=== PATIENT | female | born 1995 | race Caucasian/White ===

== ENCOUNTER 2021-07-11 12:53 | Outpatient (REF) | payer OTHER, SELFPAY | END 2021-07-11 12:54 | disposition home or self-care (01) | LOC: HO.LNP 12:53 | PROVIDERS: Visit Provider Hospitalist | DX: Z20.822 Contact with and (suspected) exposure to COVID-19 (principal); J01.90 Acute sinusitis, unspecified | CPT/HCPCS: U0003; U0005 ==

== ENCOUNTER 2022-05-29 13:35 | Outpatient (REF) | payer OTHER, SELFPAY ==
[2022-05-29 16:35] LABS: MANUAL DIFF FLAG NO
[2022-05-29 16:38] LABS: Appearance Urine CLEAR; Color Urine YELLOW; Glucose Urine UA NEG (NEG); Leukocyte Esterase Urine NEG (NEG); Nitrite Urine NEG (NEG); Specific Gravity - Urine 1.015 (1.005-1.025); UACC Culture Trigger NO; Urine Blood TRACE (NEG); Urine Ketones NEG (NEG); Urine Protein NEG (NEG-TRACE)
[2022-05-29 16:43] LABS: Basophils Percent Auto 0.5 % (0-2); Eosinophils Absolute Auto 0.1 X10*3/uL (0.0-0.4); Eosinophils Percent Auto 0.7 % (0-4); Hematocrit 36.9 % (37.0-47.0); Hemoglobin 12.3 g/dl (12.0-16.0); Imm Gran Abs Auto 0.01 X10*3/uL (0.00-0.03); Imm Gran Pct Auto 0.1 % (0.0-0.4); Lymphocytes Absolute Auto 2.2 X10*3/uL (1.2-4.9); Lymphocytes Percent Auto 25.1 % (20-40); Mean Corpuscular HGB Conc 33.3 g/dl (31.0-35.0); Mean Corpuscular Hemoglobin 30.4 pg (27.0-33.0); Mean Corpuscular Volume 91.3 fL (80.0-98.0); Mean Platelet Volume 9.6 fL (9.4-12.3); Monocytes Absolute Auto 0.7 X10*3/uL (0.1-1.2); Neutrophils Absolute Auto 5.6 x10*3/uL (2.0-8.3); Neutrophils Percent Auto 65.6 % (45-73); Platelet Count 321 X10*3/uL (160-400); Red Blood Count 4.04 X10*6/uL (4.20-5.50); Red Cell Distribution Width 11.9 % (11.0-16.0); White Blood Count 8.6 X10*3/uL (4.8-10.8)
[2022-05-29 16:48] LABS: Bacteria Urine TRACE /LPF; Squamous Epithelial Cell Urine TRACE /LPF; WBC Urine 0-2 /HPF (0-4)
[2022-05-29 16:51] LABS: Alanine Aminotransferase 16 U/L (0-31); Albumin Level 4.3 g/dL (3.5-5.0); Alkaline Phosphatase 34 U/L (39-117); Anion Gap 11 (12-20); Aspartate Amino Transferase 17 U/L (5-31); Bilirubin Total 0.4 mg/dL (0.0-1.0); Blood Urea Nitrogen 13 mg/dL (9-16); Calcium 9.2 mg/dL (8.4-10.2); Carbon Dioxide 22 mmol/L (22-29); Chloride 105 mmol/L (96-108); Cholesterol 166 mg/dL; Estimated Glomerular Filt Rate > 60; Glucose Fasting 95 mg/dL (60-99); HDL Cholesterol 60 mg/dL; LDL Cholesterol Calculated 92 mg/dl; Potassium 3.8 mmol/L (3.3-5.1); Sodium 134 mmol/L (135-145); Triglycerides 71 mg/dL
[2022-05-29 17:12] LABS: TSH reflex Free T4 0.66 uIU/mL (0.32-4.0)
== END 2022-05-29 13:36 | disposition home or self-care (01) ==
LOC: HO.HMGCLDS 13:35
PROVIDERS: PCP Nurse Practitioner Family; Visit Provider Nurse Practitioner Family
DX: Z00.00 Encounter for general adult medical examination without abnormal findings (principal)
CPT/HCPCS: 36415; 80053; 80061; 81001; 84443; 85025

== ENCOUNTER 2022-09-13 15:16 | Outpatient (REF) | payer OTHER, SELFPAY ==
[2022-09-14 06:12] LABS: CT PCR NOT DETECTED (Not Detect.); NG PCR NOT DETECTED (Not Detect.)
[2022-09-14 12:16] LABS: BV Int Neg Control Negative (Negative); BV Int Pos Control Positive (Positive)
[2022-09-20 19:57] LABS: HPV 16 RNA NOT DETECTED (NOT DETECTED); HPV mRNA E6/E7 rflx Detected (Not Detected)
== END 2022-09-13 15:17 | disposition home or self-care (01) ==
LOC: HO.LNP 15:16
PROVIDERS: Visit Provider Advanced Practice Midwife
DX: Z01.419 Encounter for gynecological examination (general) (routine) without abnormal findings (principal); Z11.51 Encounter for screening for human papillomavirus (HPV)
CPT/HCPCS: 87480; 87491; 87510; 87591; 87624; 87625; 87660; 88142

== ENCOUNTER 2022-09-22 14:34 | Outpatient (REF) | payer OTHER, MEDICAID, SELFPAY ==
--- NOTE | ~2022-09-22 | US_ITS ---
EXAMINATION: US DIAGNOSTIC ULTRASOUND BREAST, RIGHT US DIAGNOSTIC ULTRASOUND BREAST, LEFT CLINICAL INFORMATION: 26-year-old with tender and palpable fullness noted by patient bilateral breast upper outer quadrants. No discharge. Family history breast cancer maternal grandmother. No prior breast imaging. COMPARISON: None. No prior breast imaging. TECHNIQUE: Ultrasound of both breasts is targeted to the areas of clinical concern upper outer quadrant using grayscale imaging and color Doppler without and with harmonics. Patient is able to point areas of concern at time of imaging. FINDINGS: Right: There is no focal suspicious finding. There is no cystic or solid mass, architectural abnormality, duct ectasia, or edema in the soft tissue planes. No skin thickening. Left: There is a benign-appearing circumscribed macrolobulated solid mass 2:00 position 11 cm from nipple measuring 1.5 x 0.6 x 1.3 cm. There is no other cystic or solid mass or architectural abnormality. No focal duct ectasia. No skin thickening or edema tracking in soft tissue planes. Results are discussed with the patient at time of visit. The left breast mass most likely represents a fibroadenoma. Management options discussed. Patient is comfortable with serial follow-up ultrasound. US/US breast RT limited IMPRESSION: Right: -Unremarkable ultrasound. No cystic or solid mass or inflammatory changes. Left: -Benign-appearing macrolobulated solid mass 2:00 position 11 cm from nipple measuring 1.5 cm, likely fibroadenoma. ASSESSMENT: BI-RADS 3: Probably Benign RECOMMENDATION: -Left breast ultrasound in 6 months follow-up probable small fibroadenoma. -Patient's bilateral breast tenderness may be managed based on the clinical impression as needed. This patient's information was entered into a reminder system with a target due date for her next breast imaging.
--- NOTE | ~2022-09-22 | US_ITS ---
EXAMINATION: US DIAGNOSTIC ULTRASOUND BREAST, RIGHT US DIAGNOSTIC ULTRASOUND BREAST, LEFT CLINICAL INFORMATION: 26-year-old with tender and palpable fullness noted by patient bilateral breast upper outer quadrants. No discharge. Family history breast cancer maternal grandmother. No prior breast imaging. COMPARISON: None. No prior breast imaging. TECHNIQUE: Ultrasound of both breasts is targeted to the areas of clinical concern upper outer quadrant using grayscale imaging and color Doppler without and with harmonics. Patient is able to point areas of concern at time of imaging. FINDINGS: Right: There is no focal suspicious finding. There is no cystic or solid mass, architectural abnormality, duct ectasia, or edema in the soft tissue planes. No skin thickening. Left: There is a benign-appearing circumscribed macrolobulated solid mass 2:00 position 11 cm from nipple measuring 1.5 x 0.6 x 1.3 cm. There is no other cystic or solid mass or architectural abnormality. No focal duct ectasia. No skin thickening or edema tracking in soft tissue planes. Results are discussed with the patient at time of visit. The left breast mass most likely represents a fibroadenoma. Management options discussed. Patient is comfortable with serial follow-up ultrasound. US/US breast LT limited IMPRESSION: Right: -Unremarkable ultrasound. No cystic or solid mass or inflammatory changes. Left: -Benign-appearing macrolobulated solid mass 2:00 position 11 cm from nipple measuring 1.5 cm, likely fibroadenoma. ASSESSMENT: BI-RADS 3: Probably Benign RECOMMENDATION: -Left breast ultrasound in 6 months follow-up probable small fibroadenoma. -Patient's bilateral breast tenderness may be managed based on the clinical impression as needed. This patient's information was entered into a reminder system with a target due date for her next breast imaging.
== END 2022-09-22 14:35 | disposition home or self-care (01) ==
LOC: HO.MAMMO 14:34
PROVIDERS: PCP Nurse Practitioner Family; Visit Provider Nurse Practitioner Family
DX: N63.15 Unspecified lump in the right breast, overlapping quadrants (principal); N63.21 Unspecified lump in the left breast, upper outer quadrant
CPT/HCPCS: 76642

== ENCOUNTER 2023-03-23 14:02 | Outpatient (REF) | payer OTHER, SELFPAY ==
--- NOTE | ~2023-03-23 | US_ITS ---
EXAMINATION: US BREAST DIAGNOSTIC, LEFT CLINICAL INFORMATION: Six-month follow-up left breast mass. COMPARISON: 09/22/2022. TECHNIQUE: Ultrasound of the breast is performed with real-time vale scale imaging and color Doppler. FINDINGS: There is again noted to be a circumscribed hypoechoic lesion approximately 2 o'clock position 11 cm from the nipple. Lesion is wider than it is tall. No internal vascularity is seen. There is some mild increased through sound transmission without distal sound shadowing. It measures approximately 1.4 x 0.6 x 1.4 cm in size without significant change since study of 09/22/2022. Recommend 6 month follow-up left breast ultrasound. Results are discussed with the patient at time of visit. US/US breast LT limited IMPRESSION: Stable left breast lesion with benign appearance and either probably representing a fibroadenoma or complex cyst. ASSESSMENT: BI-RADS 3: Probably Benign RECOMMENDATION: Left breast ultrasound in 6 months. This patient's information was entered into a reminder system with a target due date for their next mammogram.
== END 2023-03-23 14:03 | disposition home or self-care (01) ==
LOC: HO.MAMMO 14:02
PROVIDERS: PCP Nurse Practitioner Family; Visit Provider Advanced Practice Midwife
DX: N63.21 Unspecified lump in the left breast, upper outer quadrant (principal)
CPT/HCPCS: 76642

== ENCOUNTER 2023-09-25 15:37 | Outpatient (REF) | payer OTHER, SELFPAY ==
--- NOTE | ~2023-09-25 | US_ITS ---
EXAMINATION: US DIAGNOSTIC ULTRASOUND BREAST, left. CLINICAL INFORMATION: 6 month Follow-up probably benign mass, likely fibroadenoma or variant. This has been followed since 09/22/2022. COMPARISON: 03/23/2023, 09/22/2022. TECHNIQUE: Ultrasound of the left breast is performed with real-time vale scale imaging and color Doppler. Attention was given to the 2:00 axis in the region of the known hypoechoic mass. FINDINGS: Within the left breast, 2:00 axis, 8 cm from the nipple, there is a stable and unchanged lobular hypoechoic mass measuring 1.3 x 0.5 x 1.3 cm (previously 1.4 x 0.6 x 1.4 cm). This has through transmission, is avascular, and demonstrates lobular contour. This is most likely a fibroadenoma or variant. US/US breast LT limited mamm only IMPRESSION: Stable fibroadenoma or variant in the left breast 2:00 axis, 8 cm from the nipple. Today's examination documents one-year stability. Recommend 1 year additional follow-up to document two-year stability. ASSESSMENT: BI-RADS 3: Probably Benign RECOMMENDATION: Diagnostic targeted left breast sonography in 12 months. This patient's information was entered into a reminder system with a target due date for their next mammogram.
== END 2023-09-25 15:38 | disposition home or self-care (01) ==
LOC: HO.MAMMO 15:37
PROVIDERS: PCP Nurse Practitioner Family; Visit Provider Nurse Practitioner Family
DX: N63.21 Unspecified lump in the left breast, upper outer quadrant (principal)
CPT/HCPCS: 76642

== ENCOUNTER → 2023-09-25 15:41 | Outpatient (BNV) | payer OTHER, SELFPAY | PROVIDERS: PCP Nurse Practitioner Family; Visit Provider Radiology Diagnostic Radiology | DX: N63.21 Unspecified lump in the left breast, upper outer quadrant (principal) | CPT/HCPCS: 76642 ==

== ENCOUNTER 2024-09-29 15:27 | Outpatient (REF) | payer OTHER, SELFPAY ==
--- NOTE | ~2024-09-29 | US_ITS ---
EXAMINATION: US DIAGNOSTIC ULTRASOUND BREAST, LEFT CLINICAL INFORMATION: Six-month follow-up for probably benign mass, likely fibroadenoma or variant. This is been followed since 09/22/2022 and if unchanged, will establish a 2 year stability. COMPARISON: 09/25/2023, 03/23/2023, 09/22/2022. TECHNIQUE: Ultrasound of the left breast is performed with real-time vale scale imaging and color Doppler. Attention was given to the upper outer quadrant in the region of known 2:00 axis oval circumscribed mass. FINDINGS: Within the left breast, 2:00 axis, a CM from the nipple, there is a stable and unchanged oval hypoechoic mass measuring 1.3 x 0.5 x 1.3 cm (stable), with good through transmission, no color Doppler flow, and is wider than tall. It has remained unchanged over 2 years and is benign. No further follow-up recommended. US/US breast LT limited mamm only IMPRESSION: -No findings suspicious for malignancy left breast. -Benign oval mass 2:00 axis, stable over 2 years, measuring 1.3 cm. No further follow-up recommended. -Recommend the patient begin screening mammography at age 40. ASSESSMENT: BI-RADS 2: Benign RECOMMENDATION: Routine annual mammography screening beginning at age 40. This patient's information was entered into a reminder system with a target due date for their next mammogram. Electronically signed by: Jett Kraft MD 09/29/2024 04:28 PM [facility]
== END 2024-09-29 15:28 | disposition home or self-care (01) ==
LOC: HO.MAMMO 15:27
PROVIDERS: PCP Nurse Practitioner Family; Visit Provider Nurse Practitioner Family
DX: R92.2 Inconclusive mammogram (principal)
CPT/HCPCS: 76642

== ENCOUNTER → 2024-09-29 15:30 | Outpatient (BNV) | payer OTHER, SELFPAY | PROVIDERS: PCP Nurse Practitioner Family; Visit Provider Radiology Diagnostic Radiology | DX: D24.2 Benign neoplasm of left breast (principal) | CPT/HCPCS: 76642 ==

== ENCOUNTER 2025-01-05 14:57 | Outpatient (AMB) | payer OTHER, SELFPAY ==
--- OUTSIDE RECORDS SUMMARY | 2025-01-05 15:00 | XMS_ITS | Data Portability ---
Author Organization [facility]ason [id number] Address [address] [place] [address] Assessment No assessment recorded. Plan of Treatment Reminders Order Date Submit Date Provider Last Modified By Organization Details Last Modified Time Details Appointments None record ed. Lab None record ed. Referral None record ed. Procedures None record ed. Surgeries None record ed. Imaging None record ed. Medication Orders None record ed. Patient TargetsNo targets recorded. Patient InstructionsNo instructions recorded. Reason for Referral None Reported. Medical Equipment None Reported. Allergies No known drug allergies Medications Not known to be on any medication Vitals Date Recorded Body temperature Oxygen saturation Oxygen saturation in Arterial blood by Pulse oximetry Heart rate Respiratory rate Body height Body mass index (BMI) Body weight Systolic blood pressure Diastolic blood pressure Provider Name and Address Organization Details Last Updated DateTime 4 97.7 [degF] 98 % 98 % 83 /min 20 /min 162.56 cm 23.2 kg/m2 33662.9 7 g 118 mm[Hg] 72 mm[Hg] Christina Jimenez [facility] 17:03:20 Social History Question Answer Notes LastModified by Organizat ion Details LastModified Time Tobacco Smoking Status Never Smoker [facility] 03/17/2024 17:04:56 What Is Your Level Of Alcohol Consumption? Occasional Information not available 03/17/2024 How Many Times Per Week Do You Consume Alcohol? Less Than 1 Time Per Week Information not available 03/17/2024 Are You Currently Employed? Yes Information not available 03/17/2024 Have You Had A Flu Shot This Season? Yes Information not available 03/17/2024 Have You Had Direct Contact, Or Contact During Intimacy, With Monkeypox Rash, Scabs, Or Body Fluids From A Person With Monkeypox? No Information not available 03/17/2024 What Was The Date Of Your Most Recent Tobacco Screening? 03/17/2024 Information not available 03/17/2024 What Is Your Relationship Status? Single Information not available 03/17/2024 Do You Use Any Illicit Or Recreational Drugs? No Information not available 03/17/2024 Have You Recently Traveled Abroad? No Information not available 03/17/2024 Are You Currently In School? No Information not available 03/17/2024 Do You Or Have You Ever Used Any Other Forms Of Tobacco Or Nicotine? No Information not available 03/17/2024 Sex: Unknown Functional Status None recorded. Mental Status None recorded. Family History Relationship Description Onset Age of this Age Resolved Age Notes LastModified by Organization Details LastModified Time Father No current problems or disability Not available 03/17 17:04:24 Mother No current problems or disability Not available 03/17 17:04:24 Medical History No medical history recorded. Gynecological History Statement/Question Response Is there any chance of ? Unsure Obstetrics History GPAL:G 0 P 0 0 0 0 Past Encounters Encounter ID Performer Location Encounter Start Date Encounter Closed Date Diagnosis/Indication Diagnosis SNOMED-CT Code Diagnosis ICD10 Code Diagnosis Note [id number] [address] [facility] [place] [id number] 12/29/2021 08:08:55 12/29/2021 09:11:13 [id number] [facility] Nelson [address] [place] [address] 03/17/2024 16:41:07 03/17/2024 17:17:30 History and physical examination, [facility] 10802792 Z02.0 Healthy, well developed patient with no contraindi cations for full participat ion.See scanned paperwork for details Health Concerns Section Related Observation LastModified by Organization Detai ls LastModified Time None Recorded Concern Status LastModified by Organization Details LastModified Time None Recorded Advance Directives Directive None Recorded Payers Encounter Date Sequence Insurance Name Policy Number Policy Hernandez Covered Member ID Hernandez Member ID Guarantor Name 12/29/2021 1 MEDICAID-[place]: [facility] Adrienne Buckner [id number] Adrienne Buckner 03/17/2024 OC-PAY AT TIME OF SERVICE 2022 Adrienne Buckner OTHER Adrienne Buckner OBGyn Episode No OBEpisode recorded.
--- OUTSIDE RECORDS SUMMARY | 2025-01-05 15:00 | XMS_ITS | Clinical Summary ---
Author Organization [facility] Address [phone] [facility] [place] [address] Care Team Providers Care Printing Roller Handler Name Role Phone Hemant Weller NP Primary Care Provider + Allergies No known active allergies Medications No known medications Active Problems Problem Noted Date Diagnosed Date Allergic contact dermatitis due to plant 024 Social History Tobacco Use Types Packs/Day Years Used Date Smoking Tobacco: Never Smokeless Tobacco: Never Tobacco Cessation:Counseling Given: Not Answered Education Answer Date Recorded Are you interested in more education? Not on dana e 06/03/2024 Are you concerned about learning? Not on file 06/03/2024 No 06/03/2024 No 06/03/2024 Digital Access Answer Date Recorded No 06/03/2024 No 06/03/2024 Reliable internet access at home? Not on file 06/03/2024 Device with a working camera? Not on file Sex and Gender Information Value Date Recorded Sex Assigned at Not on file Gender Identity Not on file Sexual Orientation Not on file Last Filed Vital Signs Vital Sign Reading Time Taken Comments Blood Pressure 122/70 06/02/2024 5:01 PM EDT Pulse 82 06/02/2024 5:01 PM EDT Temperature 36.8 ??C (98.2 ??F) 06/02/2024 5:01 PM ED T Respiratory Rate 16 06/02/2024 5:01 PM EDT Oxygen Saturation 99% 06/02/2024 5:01 PM EDT Inhaled Oxygen Concentration - - Weight - - Height - - Body Mass Index - - Plan of Treatment Health Maintenance Due Date Last Done Comments Adult Td,Tdap Booster 1993 DEPRESSION SCREENING 2005 HEPATITIS B SCREENING 2011 HEPATITIS C SCREENING 2011 HIV ONE-TIME SCREENING (18-6 5 YEARS) 2011 HEPATITIS B VACCINES (1 of 3 - 19+ 3-dose series) 2012 PAP SMEAR 2014 INFLUENZA VACCINE (#1) 2024 COVID-19 VACCINE ( - 2023-2 5 season) 2024 SMOKING STATUS SCREENING (On ce After 26 Yrs) Completed 06/02/2024 HEPATITIS A VACCINES Aged Out No long er eligible based on patient's age to complete this topic HIB VACCINES Aged Out No longer eligi ble based on patient's age to complete this topic MENINGOCOCCAL VACCINES (ACWY) Aged Out No longer eligible based on patient's age to complete this topic PNEUMOCOCCAL VACCINES (0-49 years) Aged Out No longer eligible based on patient's age to complete this topic Medical Devices Not on file Care Teams Printing Roller Handler Relationship Specialty Start Date End Date Hemant Weller NP [address] [place] [address] PCP - General Nurse Practitioner 06/02/24 Additional Source Comments The information contained in this document represents components of the legal health record. It is not the complete legal health record.[facility]
[2025-01-05 15:01] VITALS: BP 132/78; PULSE 73; TEMP 36.6; O2SAT 98; BMI 24.0
--- NOTE | 2025-01-05 15:01 | A.OFFPC_ITS ---
Vital Signs 01/05/25 15:01 Height 5 ft 4 in Weight 140 lb BMI 24.0 BP 132/78 Blood Pressure Location Lt brachial Position Sitting Pulse 73 Pulse Source Pulse Oximeter Temp 97.8 F Temp Source Oral Pulse Oximetry (%) 98 Oxygen Delivery Method Room Air Intake Visit Reasons: PE Accompanied by: Self / Same As Patient Allergies No Known Allergies Allergy (Verified 01/05/25 15:57) Medication List - Last Reconciled 01/05/25 by VALE Sargent- acyclovir 400 mg PO TID 7 days Tobacco use date assessed: 01/05/25 Dental Screening Dental Screen Date: 01/05/25 Did you have a dental visit in the last 12 months?: Yes Did you have a dental problem in the last 6 months where you did not have access to dental care?: No Was dental information given to patient?: Patient has dentist HPI PE HPI Details History of Present Illness The patient is a 29-year-old female presenting with episodes of blood in her stool noted after bowel movements. This gastrointestinal symptom has not been accompanied by shortness of breath, chest pain, abdominal pain, constipation, or diarrhea. The patient has been advised to increase her dietary fiber intake but is uncertain about the consistency of these lifestyle changes. She reports observing some soreness following defecation but denies any pain during a BM. Notably, there is a differential concern regarding the presence of anal fissures or hemorrhoids. She has requested an evaluation by a female healthcare provider. Health Maintenance - Increase dietary fiber as advised Social History Review of Systems - Gastrointestinal: Reports blood in sto ol and soreness after defecation - Psychiatric: Denies depression, anxiet y, and suicidal ideation -denies any SOB, CP, N/V, depression, SI or HI Physical Exam General: Cooperative, healthy appearing, comfortable, no acute distress and well developed Orientation: Patient oriented x3 Limitations: No limitations Head: Normal to inspection Ears: Hearing grossly normal bilaterally Nose: Normal external nose present Face and sinus: Normal facial exam Eyes: Appearance normal, both eyes and all related structures Neck: Normal visual inspection and Yes full ROM Respiratory: Normal respiratory effort and able to speak in complete sentences. Clear to auscultation bilaterally Cardiovascular: Regular rate and rhythm. Normal S1 and S2 GI: Normal to inspection. Soft to palpation and nontender. Skin: No rashes or lesions noted Neuro: Patient oriented x3 Extremities: Normal to inspection Results Plan - Refer to Gastroenterology for further evaluation of blood in stool and potential hemorrhoid or anal fissure diagnosis, ensure request for female provider is noted - Advise patient to continue dietary fib er increase Discussion Notes I explained the potential diagnoses to the patient, including hemorrhoids and anal fissures, and discussed the importance of a thorough gastrointestinal evaluation by a specialist. The referral to Gastroenterology has been initiated, with a specific request for a female provider, as per the patient's preference. We discussed that increasing fiber intake may alleviate symptoms, and I encouraged her to maintain this dietary change. The patient denies depression and anxiety, and I reassured her about the steps we are taking to manage her symptoms effectively. Patient Instructions - Follow up with a Health Commissioner as referred, requesting a female provider - Maintain increased dietary fiber intak e - Monitor for changes or worsening of sy mptoms and seek medical attention as needed PFSH Medical History COVID-19 Surgical History Hx of elbow surgery Family History Mother Ovarian cancer Social History Housing: Apartment Patient Tobacco Use Status: Never used Tobacco e-Cigarette/Vaping Use: Never Used Second Hand Smoke Exposure: No service: No Current occupational status: employed Current occupation: [employer] Current occupational exposures/hazards: No Cognitive needs: No Hearing needs: No Vision needs: No Female Reproductive History Menstrual Age of Menarche: 14 Questionnaire PHQ-9 Over the last 2 weeks, how often have you been bothered by any of the following problems? 1. Little interest or pleasure in doing things: not at all 2. Feeling down, depressed, or hopeless: not at all 3. Trouble falling or staying asleep, or sleeping too much: not at all 4. Feeling tired or having little energy: not at all 5. Poor appetite or overeating: not at all 6. Feeling bad about yourself - or that you are a failure or have let yourself or your family down: not at all 7. Trouble concentrating on things, such as reading the newspaper or watching television: not at all 8. Moving or speaking so slowly that other people could have noticed. Or the opposite - being so fidgety or restless that you have been moving around a lot more than usual: not at all 9. Thoughts that you would be better off or of hurting yourself in some way: not at all Total score: 0 Depression Screening Interpretation: Negative Depression Screening Done: Yes 36676 - PHQ-9 Billing: Yes Source: Developed by Drs. Brandyn Dutta, Christine Alonso, Wayne Hernández and colleagues, with an educational jeni from [employer]. Thrive Questionnaire Date Thrive assessed: 01/05/25 I am a: Patient What is your living situation today?: I have a steady place to live Within the past 12 months, did the food you bought not last and you didn't have the money to get more?: Never true Within the past 12 months, did you worry whether your food would run out before you got money to buy more?: Never true Do you have trouble paying for medicines?: No Do you have trouble getting transportation to medical appointments?: No Do you have trouble paying your heating and electricity bill?: I choose not to answer this question Do you have trouble taking care of your child, family member or friend?: No Do you have trouble with day-to-day activities such as bathing, preparing meals, shopping, managing finances, etc.?: No Are you currently unemployed and looking for a job?: No Are you interested in more education?: No Please select the resources that you would like help with: Education Currently or been in a relationship where the following occur: No concerns reported THRIVE Score: 0 AUDIT C Alcohol Use Questionnaire (AUDIT-C) 1. How often do you have a drink containing alcohol?: Monthly or less 2. How many drinks containing alcohol do you have on a typical day when you are drinking?: 1 or 2 3. How often do you have six or more drinks on one occasion?: Never Total Score: 1 Score Reviewed/Action Taken: Yes LION-7 AMB Questionnaire LION-7 Date LION - 7 assessed: 01/05/25 Feeling nervous, anxious, or on edge: 0 = Not at all Not being able to stop or control worryin = Not at all Worrying too much about different things: 0 = Not at all Trouble relaxin = Not at all Being so restless that it is hard to sit still: 0 = Not at all Becoming easily annoyed or irritable: 0 = Not at all Feeling afraid as if something awful might happen: 0 = Not at all Total LION-7 score (0-4 normal; 5-9 mild; 10-14 moderate; 15-21 severe): 0 Source: Developed by Drs. Brandyn Dutta, Christine Alonso, Wayne Hernández and colleagues, with an educational jeni from [employer]. LION-7 Assessment Billing LION-7 Assessment Tool: LION-7 Assessment 81451 Physical exam (Primary Care) Vital Signs: Last Vital Signs Temp 97.8 F 01/05/25 15:01 Pulse 73 01/05/25 15:01 BP 132/78 01/05/25 15:01 Pulse Ox 98 01/05/25 15:01 Oxygen Delivery Method Room Air 01/05/25 15:01 BMI result Body Mass Index 24.0 Tobacco/Smoking Status: Tobacco use Status Tobacco use date assessed 01/05/25 01/05/25 15:02 Patient Tobacco Use Status Never used Tobacco 01/05/25 15:02 e-Cigarette/Vaping Use Never Used 01/05/25 15:02 PHQ-9: PHQ-9 Score PHQ-9: Total score 0 01/05/25 15:08 Depression Screening Interpretation: Negative Thrive Assessment: Date of Thrive Assessment Date Thrive assessed 01/05/25 01/05/25 15:02 Currently or been in a relationship where the following occur: No concerns reported Coding Level of Care Code Est Pt Prev Care 18-39y(35822) Diagnoses Physical exam Z00.00 Blood in stool K92.1 Additional Codes LION-7 Assessment Billing - LION-7 Assessment Tool: LION-7 Assessment 27116 ([id number]) PHQ-9 - 14925 - PHQ-9 Billing: Yes ([id number]) Assessment & Plan Assessment & Plan (1) Physical exam: Code(s): Z00.00 - Encounter for general adult medical examination without abnormal findings Category: Medical (2) Blood in stool: Code(s): K92.1 - Melena Category: Medical Plan . Orders: Orders Complete Blood Count Auto Diff Today Z00.00 - Encounter for general adult medical examination without abnormal findings TSH reflex Free T4 Today Z00.00 - Encounter for general adult medical examination without abnormal findings UA CC w/rflx Micro + Cult Today Z00.00 - Encounter for general adult medical examination without abnormal findings Comprehensive Slade. Panel Fast Today Z00.00 - Encounter for general adult medical examination without abnormal findings Lipid Panel Today Z00.00 - Encounter for general adult medical examination without abnormal findings Referrals Gastroenterology Referral K92.1 - Melena
== END 2025-01-05 16:07 | disposition home or self-care (01) ==
PROVIDERS: PCP Nurse Practitioner Family; Visit Provider Nurse Practitioner Family
DX: Z00.00 Encounter for general adult medical examination without abnormal findings (principal); K92.1 Melena

== ENCOUNTER → 2025-01-05 14:57 | Outpatient (BNVA) | payer OTHER, SELFPAY | PROVIDERS: PCP Nurse Practitioner Family; Visit Provider Nurse Practitioner Family | DX: Z00.00 Encounter for general adult medical examination without abnormal findings (principal); K92.1 Melena | CPT/HCPCS: 96127; 99395 ==

== ENCOUNTER 2025-03-28 11:01 | Outpatient (REF) | payer OTHER, SELFPAY ==
--- OUTSIDE RECORDS SUMMARY | 2025-03-28 11:03 | XMS_ITS | Clinical Summary ---
Author Organization [facility] Address [address] [place] [id number] Phone Care Team Providers Care Nuclear Design Engineer Name Role Phone Hemant Weller NP Primary [...] Medical Devices Not on file Care Teams Nuclear Design Engineer Relationship Specialty Start Date End Date Hemant Weller NP [facility] [place] [address] PCP - General Nurse Practitioner 06/02/24 Additional Source Comments The information contained in this document represents components of the legal health record. It is not the complete legal health record.[facility]
--- OUTSIDE RECORDS SUMMARY | 2025-03-28 11:04 | XMS_ITS | Data Portability ---
Author Organization [facility]ason [address] Address [address] [place] [address] Assessment No assessment recorded. Plan of Treatment [...] /min 20 /min 162.56 cm 23.2 kg/m2 36108.9 7 g 118 mm[Hg] 72 mm[Hg] Christina Jimenez [facility] 17:03:20 Social History Question Answer Notes LastModified [...] SNOMED-CT Code Diagnosis ICD10 Code Diagnosis Note [id number] [address] [facility] [address] [place] [address] 12/29/2021 08:08:55 12/29/2021 09:11:13 [id number] [facility] Nleson [address] [place] [address] 03/17/2024 16:41:07 03/17/2024 17:17:30 History and physical examination, [facility] [id number] Z02.0 Healthy, well developed patient with no contraindi cations for full participat ion.See scanned paperwork for details Health Concerns Section Related Observation LastModified by Organization Detai ls LastModified Time None Recorded Concern Status LastModified by Organization Details LastModified Time None Recorded Advance Directives Directive None Recorded Payers Insurance Date Sequence Insurance Name Policy Number Policy Hernandez Covered Member ID Hernandez Member ID Guarantor Name 03/17/2024 OC-PAY AT TIME OF SERVICE 2022 Adrienne Sita OTHER OTHER Adrienne Sita 03/17/2024 1 MEDICAID-[place]: [facility] Adrienne Sita [id number] Adrienne Sita 03/17/2024 PAY AT TOS Adrienne Sita OTHER OTHER Adrienne Sita OBGyn Episode No OBEpisode recorded.
[2025-03-28 14:10] LABS: MANUAL DIFF FLAG NO
[2025-03-28 14:14] LABS: Basophils Percent Auto 0.5 % (0-2); Eosinophils Absolute Auto 0.1 X10*3/uL (0.0-0.4); Eosinophils Percent Auto 0.9 % (0-4); Hematocrit 38.9 % (37.0-47.0); Hemoglobin 13.3 g/dl (12.0-16.0); Imm Gran Abs Auto 0.01 X10*3/uL (0.00-0.03); Imm Gran Pct Auto 0.1 % (0.0-0.4); Lymphocytes Absolute Auto 1.9 X10*3/uL (1.2-4.9); Mean Corpuscular HGB Conc 34.2 g/dl (31.0-35.0); Mean Corpuscular Hemoglobin 31.1 pg (27.0-33.0); Mean Corpuscular Volume 90.9 fL (80.0-98.0); Mean Platelet Volume 9.2 fL (9.4-12.3); Monocytes Absolute Auto 0.6 X10*3/uL (0.1-1.2); Neutrophils Absolute Auto 5.4 x10*3/uL (2.0-8.3); Neutrophils Percent Auto 67.5 % (45-73); Platelet Count 333 X10*3/uL (160-400); Red Blood Count 4.28 X10*6/uL (4.20-5.50); Red Cell Distribution Width 11.9 % (11.0-16.0)
[2025-03-28 14:20] LABS: Appearance Urine Clear; Color Urine Yellow; Glucose Urine UA Negative (Negative); Leukocyte Esterase Urine Negative (Negative); Nitrite Urine Negative (Negative); PH 5.5 (5.0-9.0); Specific Gravity - Urine 1.025 (1.005-1.025); UMIC TRIGGER UACC YES; Urine Blood Small (1+) (Negative); Urine Ketones Trace mg/dL (Negative); Urine Protein Negative (Neg-Trace)
[2025-03-28 14:37] LABS: Bacteria Urine Trace (None Seen); Hyaline Casts Urine 0-2 /LPF (0-2); WBC Urine 0-5 /HPF (0-5)
[2025-03-28 14:43] LABS: Alanine Aminotransferase 16 U/L (0-31); Albumin Level 4.4 g/dL (3.5-5.0); Alkaline Phosphatase 47 U/L (39-117); Anion Gap 11 (12-20); Aspartate Amino Transferase 21 U/L (5-31); Bilirubin Total 0.5 mg/dL (0.0-1.0); Blood Urea Nitrogen 11 mg/dL (9-16); Calcium 9.4 mg/dL (8.4-10.2); Carbon Dioxide 23 mmol/L (22-29); Chloride 110 mmol/L (96-108); Cholesterol 158 mg/dL (<200); Estimated Glomerular Filt Rate > 60; Glucose Fasting 95 mg/dL (60-99); HDL Cholesterol 48 mg/dL (>40); LDL Cholesterol Calculated 103 mg/dL (<100); Potassium 3.8 mmol/L (3.3-5.1); Sodium 140 mmol/L (135-145); Total Protein 7.2 g/dL (6.5-8.0); Triglycerides 39 mg/dL (<150)
[2025-03-28 14:46] LABS: HBS Num1 0.24 mIU/mL (0-7.99); HBc Num1 0.18 S/CO (0.00-0.79); HBsAGNum1 0.31 S/CO (0.00-0.99); Hepatitis A Antibody IgM 0.13 Index (0-0.79); Hepatitis B Core Antibody Nonreactive (Nonreactive); Hepatitis B Surface Antigen Negative (Negative); ~HepC Num1 0.25 S/CO (0.00-0.79); ~Hepatitis A Antibody IgM Nonreactive (Nonreactive); ~Hepatitis B Surface Antibody NONREACTIVE (Nonreactive); ~Hepatitis C Antibody Nonreactive (Nonreactive)
[2025-03-28 14:50] LABS: TSH reflex Free T4 0.74 uIU/mL (0.32-4.0)
[2025-03-30 21:49] LABS: Mumps Virus IgG Antibody <9.00 AU/mL; Rubella IgG Antibody 3.26 Index; Varicella IgG Antibody 8.07 S/CO
== END 2025-03-28 11:02 | disposition home or self-care (01) ==
LOC: HO.HMGCLDS 11:01
PROVIDERS: PCP Nurse Practitioner Family; Visit Provider Nurse Practitioner Family
DX: Z00.00 Encounter for general adult medical examination without abnormal findings (principal)
CPT/HCPCS: 36415; 80053; 80061; 81001; 84443; 85025; 86704; 86706; 86709; 86735; 86762; 86765; 86787; 86803; 87340

== ENCOUNTER 2025-04-09 16:04 | Outpatient (REF) | payer OTHER, SELFPAY ==
[2025-04-11 21:09] LABS: TS Negative Control Passed; TS Panel A 0; TS Panel B 0; TS Positive Control Passed; TSpotTB Negative (Negative)
== END 2025-04-09 16:05 | disposition home or self-care (01) ==
LOC: HO.LAB 16:04
PROVIDERS: PCP Nurse Practitioner Family; Visit Provider Nurse Practitioner Family
DX: Z28.39 Other underimmunization status (principal)
CPT/HCPCS: 36415; 86481

== ENCOUNTER → 2025-04-14 15:06 | Outpatient (BNVA) | payer SELFPAY | PROVIDERS: PCP Nurse Practitioner Family | DX: Z02.89 Encounter for other administrative examinations (principal) ==

== ENCOUNTER → 2025-05-08 12:03 | Outpatient (BNVA) | payer SELFPAY | PROVIDERS: PCP Nurse Practitioner Family | DX: Z02.89 Encounter for other administrative examinations (principal) ==

== ENCOUNTER → 2025-06-22 15:10 | Outpatient (AMB) | payer OTHER, SELFPAY ==
--- NOTE | 2025-06-22 15:10 | A.OFFVIS_ITS ---
Intake Visit Reasons: Melena Intake Note: Adrienne presents as a telehealth today as a new patient regard melena. CC: She states she has not had bleeding since April - she has no symptoms at all. Denies stomach pains and irregular bowel movements. 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 Pt reports onset of sx in Dec which she describes as brown stool with blood around it. Mostly on toiler paper. No pain on defecation. Pt does not report straining or constipation. Sx persisted for a few months and then resolved spontaneously in April. Has some pressure or discomfort in rectum occasionally. Also used to shave the perineal area and wonders if that caused it. Sometimes takes nsaids may be 2-3 times a year. Does not smokes. Occasional etOH. No fam hx of CRC or IBD. PFSH Medical History COVID-19 Surgical History Hx of elbow surgery Family History Mother Ovarian cancer Social History Housing: Apartment Patient Tobacco Use Status: Never used Tobacco e-Cigarette/Vaping Use: Never Used Second Hand Smoke Exposure: No service: No Current occupational status: employed Current occupation: [employer] Current occupational exposures/hazards: No Cognitive needs: No Hearing needs: No Vision needs: No Female Reproductive History Menstrual Age of Menarche: 14 Review of Systems Const All systems reviewed & are unremarkable except as noted in HPI and below Physical Exam Exam Exam: telephone visit Telehealth Telehealth Telehealth Platform: Telephone Location of provider rendering services: practice address Location of patient: address on file Patient Identification confirmed using: Name, : Yes Telehealth method: voice only Patient verbally consented to treatment: Yes Patient verbally consented to billing insurance company: Yes Patient informed of any privacy concerns related to visit: Yes Minutes spent on Phone/Video with Pt.: 15 Assessment & Plan Assessment & Plan (1) Bright red rectal bleeding: Code(s): K62.5 - Hemorrhage of anus and rectum Category: Medical Plan Based on assessment of with a tele health visit, symptoms most consistent with rectal outlet bleeding, most likely hemorrhoidal bleeding. Anal fissure less likely given absence of any pain. No suspicion for rectal abscess in the absence of other systemic signs or symptoms. This has since resolved spontaneously Plan: -counseled on increasing hydration fiber intake -avoid constipation and straining -Sitz baths -to call office for recurrence of bleeding, for topical steroid treatment -follow-up in 2 months to review Coding Level of Care Code Tele New Pt Level 4 (43321) Diagnoses Bright red rectal bleeding K62.5
--- OUTSIDE RECORDS SUMMARY | 2025-06-22 15:13 | XMS_ITS | Clinical Summary ---
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 Not on file Comments Unknown Sex and Gender Information Value Date Recorded Sex Assigned at Not on file Legal Sex Female 4:46 PM EDT Gender Identity Not on file Sexual Orientation Not on file Last Filed Vital Signs Vital Sign Reading Time Taken Comments Blood Pressure 122/70 06/02/2024 5:01 PM EDT Pulse 82 06/02/2024 5:01 PM EDT Temperature 36.8 C (98.2 F) 06/02/2024 5:01 PM EDT Respiratory Rate 16 06/02/2024 5:01 PM EDT Oxygen Saturation 99% 06/02/2024 5:01 PM EDT Inhaled Oxygen Concentration - - Weight - - Height - - Body Mass Index - - Plan of Treatment Health Maintenance Due Date Last Done Comments Adult Td,Tdap Booster 1993 DEPRESSION SCREENING 2005 HEPATITIS C SCREENING 2011 HIV ONE-TIME SCREENING (18-6 5 YEARS) 2011 PAP SMEAR 2014 COVID-19 VACCINE (2023-2 5 season) 2024 SMOKING STATUS SCREENING (On [...] age to complete this topic MENINGOCOCCAL VACCINES (B) Aged Out N o longer eligible based on patient's age to complete this topic PNEUMOCOCCAL VACCINES (0-49 years) Aged Out No longer eligible based on patient's age to complete this topic Medical Devices Not on file Insurance [facility] [employer] [place] [address] [place] [address] CONNECTORCARE DIRECT Care Teams Filament Wound Parts Fabricator Relationship Specialty Start Date End Date Hemant Weller NP [address] [place] [address] [email or web address] PCP - General Nurse Practitioner 06/02/24 Additional Source Comments The information contained in this document represents components of the legal health record. It is not the complete legal health record.[facility]
== END ==
PROVIDERS: PCP Nurse Practitioner Family; Visit Provider Internal Medicine
DX: K62.5 Hemorrhage of anus and rectum (principal)
CPT/HCPCS: 98005